=== PATIENT | female | born 1990 | race Caucasian/White ===

== ENCOUNTER → 2019-04-07 | Outpatient (CLI) | payer OTHER ==
--- NOTE | 2019-04-07 17:02 | REP ---
BILATERAL MAMMOGRAM WITH BILATERAL BREAST ULTRASOUND: HISTORY: Bilateral pain outer aspect bilateral breasts. Family history of breast cancer in a maternal aunt. [place] lifetime risk of breast cancer 17.2%. No prior studies available. Bilateral MLO and CC views of the breasts demonstrate heterogeneous dense fibroglandular tissue in a relatively symmetrical pattern. No discrete mass or architectural distortion is seen. No clustered microcalcifications are seen. Real-time sonographic evaluation of the outer aspect of each breast demonstrates dense fibroglandular tissue with scattered dilated ducts. No discrete cystic or solid nodule is seen bilaterally. IMPRESSION: ACR 2 benign. Dense breasts limits the sensitivity of the mammogram. There is no definite evidence of mass or architectural distortion bilaterally. There is no sonographic evidence of a mass in the outer aspect of each breast in the region of pain. Clinical correlation and followup recommended. BIRADS 2: BI-RADS/ACR category 2 mammogram. Benign Findings. This mammogram was interpreted with the aid of an FDA-approved computer-aided detection system. The patient states she/he had a clinical breast exam March 2019. The patient letter being requested is M2. Electronically Signed by Jeferson Mclean MD 04/09/2019 12:35 P
== END ==
LOC: M RAD 13:39
PROVIDERS: ATTEND Family Medicine
DX: N64.4 Mastodynia (principal)

== ENCOUNTER → 2019-04-14 | Outpatient (CLI) | payer OTHER ==
--- NOTE | 2019-04-14 18:01 | REPVR ---
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 Radiation optimization: All CT scans at this facility use at least one of these dose optimization techniques: automated exposure control; mA and/or kV adjustment per patient size (includes targeted exams where dose is matched to clinical indication); or iterative reconstruction. Contrast material: ISOVUE 370; Contrast volume: 75 ml; Contrast route: IV; COMPARISON: No relevant prior studies available. FINDINGS: Brain: There is extensive right temporal encephalomalacia at the site of previous surgery. There is a smaller focus of left temporal encephalomalacia at the site of previous surgery. No acute infarct. No hemorrhage or extra-axial collection. No mass. No abnormal enhancement. Ventricles: Normal. No ventriculomegaly. Bones/joints: There are bilateral temporal craniotomies. There no acute fracture. Sinuses: Visualized sinuses are unremarkable. No fluid levels. Mastoid air cells: Visualized mastoid air cells are well aerated. No mastoid effusion. Soft tissues: Unremarkable. Sella: There is no evidence of a sellar mass. There are no dedicated views of the sella. IMPRESSION: 1. 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 2. No acute intracranial lesion or injury. 3. No evidence of a mass. Electronically signed by: Arsenio Carrillo On 04/14/2019 18:00:44 PM
== END ==
LOC: M RAD 17:06
PROVIDERS: ATTEND Family Medicine
DX: R51 Headache (principal); E22.1 Hyperprolactinemia

== ENCOUNTER → 2021-04-12 | Outpatient (CLI) | payer OTHER ==
--- NOTE | 2021-04-13 19:42 | ECHO ---
ECHOCARDIOGRAM DATE OF PROCEDURE: 04/12/2021 Age: 30 Gender: Female Height: 165 cm Weight: 62 kg REFERRING PHYSICIAN: Rizwan Chen). INDICATION: Hypermobility syndrome. MEASUREMENTS: IVS 0.9 cm LV 3.2 cm LVPW 0.9 cm LA 1.6 cm Aorta 2.5 cm IVC 1.1 cm Mitral E velocity 70 A wave 59 E prime septal 5.9 E prime lateral 10.7 FINDINGS: This study is of fair technical quality. Underlying sinus rhythm. Normal left ventricular (LV) size with normal LV systolic function. Estimated left ventricular ejection fraction (LVEF) 60-65%. Normal right ventricular (RV) size and systolic function. Both atria appear normal. Aortic, mitral and tricuspid valves are normal. Pulmonic valve was not well seen. No pericardial effusion is noted. Inferior vena cava is of normal size. Aortic root, aortic arch and visualized section of abdominal aorta all appear normal. Doppler interrogation reveals competent aortic valve, trace mitral insufficiency. Tricuspid valve is functionally competent. Mitral inflow pattern and tissue Doppler imaging of mitral annulus reveal normal diastolic function. CONCLUSIONS: 1. Study is of fair technical quality. Underlying sinus rhythm. 2. Normal left ventricular (LV) size with normal LV systolic and diastolic function. 3. No significant aortic, mitral and tricuspid valvular disease. 4. Normal central venous pressure. 5. Unable to estimate pulmonary artery pressure, but no signs to suggest pulmonary hypertension. 6. Essentially normal echocardiogram.
== END ==
LOC: M CARPUL 14:31
PROVIDERS: ATTEND Emergency Medicine
DX: M35.7 Hypermobility syndrome (principal)